=== PATIENT | female | born 1955 | race African-American/Black ===

== ENCOUNTER 2019-04-24 08:57 | Emergency (ER) | payer SELFPAY ==
[~2019-04-24] VITALS: Ht 170.2 cm; Wt 90.0 kg
[2019-04-24] MEDS ORDERED: GABA-529 PO (09:03)
[2019-04-24] MEDS ORDERED: SODIUM CHLORIDE 0.9% 1,000 ML IV ONE ×2 (09:12→12:17)
[2019-04-24] MEDS ORDERED: TRAMADOL 50MG TABLET PO ONE (09:15)
[2019-04-24 09:28] LABS: BASOPHILS % 0.5 % (0.0-2.0); EOSINOPHILS % 1.6 % (0.0-5.0); HEMATOCRIT. 41.8 % (36.0-48.0); HEMOGLOBIN. 12.9 g/dL (12.0-16.0); LYMPHOCYTES % 38.9 % (20.0-50.0); MEAN CORPUSCULAR HEMOGLOBIN 22.7 pg (28.0-32.0); MEAN CORPUSCULAR VOLUME 73.5 fL (81.0-99.0); MEAN PLATELET VOLUME 9.7 fl (7.4-10.4); MONOCYTES % 6.1 % (2.0-8.0); NEUTROPHILS % 52.9 % (40.0-76.0); PLATELET 242 x1000/uL (130-400); RED BLOOD CELL COUNT 5.69 mill/uL (4.2-5.4); RED CELL DISTRIBUTION WIDTH 15.6 % (11.6-14.6)
[2019-04-24 09:35] LABS: CHLORIDE 100 mEq/L (98-107)
[2019-04-24] MEDS ORDERED: INSULIN REGULAR (HUMULIN R) 300UNITS/3ML IV ONE (11:30)
[2019-04-24] MEDS ORDERED: IOHEXOL-300 100 ML BOTTLE ONE (11:31)
[2019-04-24 12:22] VITALS: BP 163/73
[2019-04-24 12:45] LABS: CLARITY URINE CLEAR (CLEAR); COLOR URINE YELLOW (YELLOW); KETONES URINE TRACE (NEGATIVE); LEUKOCYTE ESTERASE URINE NEGATIVE (NEGATIVE); NITRITE URINE NEGATIVE (NEGATIVE); OCCULT BLOOD URINE NEGATIVE (NEGATIVE); PROTEIN URINE TRACE (NEGATIVE); SPECIFIC GRAVITY URINE 1.046 (1.005-1.030); UROBILINOGEN URINE 0.2 E.U./dL (0.2-1.0)
== END 2019-04-24 14:30 | disposition home or self-care (01) ==
LOC: ER 09:03
DX: S09.8XXA Other specified injuries of head, initial encounter (principal); S16.1XXA Strain of muscle, fascia and tendon at neck level, initial encounter; S40.011A Contusion of right shoulder, initial encounter; S89.91XA Unspecified injury of right lower leg, initial encounter; S39.91XA Unspecified injury of abdomen, initial encounter; M25.521 Pain in right elbow; V49.49XA Driver injured in collision with other motor vehicles in traffic accident, initial encounter; Y93.89 Activity, other specified; Y92.410 Unspecified street and highway as the place of occurrence of the external cause; E11.65 Type 2 diabetes mellitus with hyperglycemia; I10 Essential (primary) hypertension; Z79.899 Other long term (current) drug therapy
CPT/HCPCS: 36415; 70450; 71045; 71260; 72125; 73030; 73080; 73562; 74177; 80053; 81003; 84484; 85025; 93005; 96374; 99284; J1815; J7030; Q9967